=== PATIENT | female | born 2000 | race African-American/Black ===

== ENCOUNTER 2023-01-05 08:23 | Emergency (ER) | payer OTHER, SELFPAY ==
[2023-01-05 09:16] LABS: Bilirubin Neg (Negative); Blood, Urine 250 (Negative); Clarity Slightly Cloudy (Clear); Glucose, Urine (Dipstick) Normal (Negative); Ketone, Urine 5 mg/dL (Negative); Leukocyte 25 (Negative); Nitrite Negative (Negative); Protein, Urine (Dipstick) 30 mg/dl (Neg-Trace); Urobilinogen Normal mg/dL (Less than 2)
[2023-01-05 09:24] LABS: BHCG - Serum Negative (NEGATIVE); Pregs Control Background? CLEAR/WHITE (CLR/WHITE); Pregs Control Bar Appear? YES (CONTROL BAR)
[2023-01-05 09:25] LABS: CAUTI Indications for Culture Dysuria,urgency,freq; WBC/HPF 0-3 HPF (0-3)
[2023-01-05 09:26] LABS: Bacteria/HPF 1+ HPF (None Seen); Calcium Oxalate Crystals 1+ HPF (None Seen); Mucous/LPF 1+ LPF (<2+)
[2023-01-05 09:27] LABS: Urine Culture Reflex No No
[2023-01-05 15:31] LABS: Chlamydia by PCR, Vaginal Swab Not Detected (NotDetected); GC by PCR, Vaginal Swab Not Detected (NotDetected)
== END 2023-01-05 10:28 | disposition home or self-care (01) ==
LOC: CSHERS 08:23
DX: N76.0 Acute vaginitis (principal); J45.909 Unspecified asthma, uncomplicated
CPT/HCPCS: 36415; 81001; 84703; 87480; 87491; 87510; 87591; 87660; 99283

== ENCOUNTER 2023-01-13 09:22 | Emergency (ER) | payer SELFPAY ==
[2023-01-13 10:24] LABS: Bilirubin Neg (Negative); Blood, Urine 250 (Negative); Clarity Cloudy (Clear); Glucose, Urine (Dipstick) Normal (Negative); Ketone, Urine Negative (Negative); Leukocyte 100 (Negative); Nitrite Negative (Negative); Protein, Urine (Dipstick) 30 mg/dl (Neg-Trace); pH, Urine 6.5 (5.0-9.0)
[2023-01-13 10:52] LABS: RBC/HPF Greater than 50 HPF (0-3)
[2023-01-13 10:53] LABS: Bacteria/HPF 2+ HPF (None Seen); CAUTI Indications for Culture Pelvic or flank pain
[2023-01-13 10:54] LABS: Mucous/LPF 2+ LPF (<2+)
[2023-01-13 10:55] LABS: Pregnancy Test - Urine (BHCG) Negative (Negative); Pregu Control Background? CLEAR/WHITE (CLR/WHITE); Pregu Control Bar Appear? YES (CONTROL BAR)
[2023-01-13 10:56] LABS: Urine Culture Reflex No No
== END 2023-01-13 11:20 | disposition home or self-care (01) ==
LOC: CSHERS 09:22
DX: N93.9 Abnormal uterine and vaginal bleeding, unspecified (principal); R31.9 Hematuria, unspecified; F17.210 Nicotine dependence, cigarettes, uncomplicated; I10 Essential (primary) hypertension
CPT/HCPCS: 81001; 81025; 87086; 99284